=== PATIENT | female | born 1965 | race African-American/Black ===

== ENCOUNTER 2017-09-08 19:54 | Inpatient (IN) | payer OTHER, MEDICAID ==
[~2017-09-08] VITALS: Ht 157.5 cm; Wt 55.3 kg
[2017-09-08 20:16] LABS: BASOPHIL (%) 0.4 % (0-1); EOSINOPHIL (%) 0.4 % (0-5); HEMATOCRIT 40.6 % (36.0-46.0); HEMOGLOBIN 14.9 G/DL (11.9-15.5); IMMATURE GRANULOCYTE (%) 0.6 % (0.0-0.7); LYMPHOCYTE (%) 33.8 % (15-42); LYMPHOCYTE COUNT 2.3 K/uL (1.0-2.8); MCHC 36.7 G/DL (30.0-36.0); MONOCYTE (%) 6.2 % (3-12); MONOCYTE COUNT 0.4 K/uL (0-0.8); NEUTROPHIL (%) 58.6 % (45-76); NEUTROPHIL COUNT 4.1 K/uL (1.8-6.4); PLATELET COUNT 291 K/uL (156-360); RBC DIS.WIDTH-CV 11.6 % (11.8-14.6); RBC DIS.WIDTH-SD 38.1 % (39-53); RED BLOOD COUNT 4.51 M/uL (3.80-5.20); WHITE BLOOD COUNT 6.9 K/uL (4.1-10.2)
[2017-09-08 20:28] LABS: AMYLASE 36 IU/L (1-118); CHLORIDE 93 mEq/L (99-109); POTASSIUM 4.4 mEq/L (3.7-5.4); SODIUM 132 mEq/L (136-147)
[2017-09-08 20:33] LABS: CREATININE 1.1 mg/dL (0.6-1.3); SERUM ETHYL ALCOHOL < 10 mg/dL
[2017-09-08 20:34] LABS: UREA NITROGEN (BUN) 10 mg/dL (9-23)
[2017-09-08 20:36] LABS: LIPASE 9 U/L (1.0-51.0)
[2017-09-08 20:43] LABS: QUANTITATIVE HCG < 4.0 MIU/ML
[2017-09-08 20:44] LABS: GFR ESTIMATE (CALCULATED) 55 mL/min/
[2017-09-08 20:46] LABS: GLUCOSE 711 mg/dL (70-99)
[2017-09-08 20:47] LABS: APPEARANCE SL.HAZY ((CLEAR)); BILIRUBIN NEGATIVE; BLOOD SMALL; COLOR STRAW ((YELLOW)); GLUCOSE (STRIP) >=500; KETONES 5; LEUKOCYTES LARGE; NITRITE NEGATIVE; PROTEIN (STRIP) NEGATIVE; SPECIFIC GRAVITY 1.025 (1.000-1.030); UROBILINOGEN 0.2 MG/DL (0.2-1.0)
[2017-09-08 20:50] LABS: BACTERIA RARE /HPF; EPITHELIAL CELLS RARE /HPF; MUCUS TRACE /LPF; RED BLOOD CELLS 20-30 /HPF (0-5); UCUL ADDED? YES; WHITE BLOOD CELLS TNTC /HPF (0-5)
[2017-09-08 21:02] LABS: AMPHETAMINE NEGATIVE (500 ng/mL); BARBITURATES NEGATIVE (200 ng/mL); BENZODIAZEPINES NEGATIVE (150 ng/mL); BUPRENORPHINE NEGATIVE (10 ng/mL); COCAINE PRESUMPTIVE POSITIVE (150 ng/mL); METHADONE NEGATIVE (200 ng/mL); METHAMPHETAMINE NEGATIVE (500 ng/mL); OPIATES (MORPHINE) NEGATIVE (100 ng/mL); OXYCODONE NEGATIVE (100 ng/mL); PHENCYCLIDINE NEGATIVE (25 ng/mL); PROPOXYPHENE NEGATIVE (300 ng/mL); THC CANNABINOIDS NEGATIVE (50 ng/mL); TRICYCLIC ANTIDEPRESSANTS NEGATIVE (300 ng/mL)
[2017-09-08] MEDS ORDERED: LANTUS 3 M100 UNITS1 SC (22:46)
[2017-09-08] MEDS ORDERED: UNABLE TO OBTAIN (22:49)
[2017-09-09] VITALS (13 sets, daily range): BP systolic 111–179; BP diastolic 58–86
[2017-09-09] MEDS ORDERED: NOVOLOG PE100 UNITS/ SC (09:45)
[2017-09-09] MEDS ORDERED: GABAPENTIN600 MG PO (09:45)
[2017-09-09] MEDS ORDERED: OXYCODONE-APAP1 EACH PO (09:45)
[2017-09-09] MEDS ORDERED: ASPIR 8181 M1 PO (09:46)
[2017-09-09 12:42] LABS: GLUCOSE 374 mg/dL (70-99)
[2017-09-09 12:52] LABS: CHLORIDE 95 MEQ/L (99-109); CREATININE 0.7 MG/DL (0.6-1.3); GFR ESTIMATE (CALCULATED) > 59 mL/min/; POTASSIUM 3.8 MEQ/L (3.7-5.4); SODIUM 133 MEQ/L (136-147); UREA NITROGEN (BUN) 9 mg/dL (9-23)
[2017-09-09 17:49] LABS: GLUCOSE 433 mg/dL (70-99)
[2017-09-10 03:40] VITALS: BP 106/55
[2017-09-10 06:18] LABS: BASOPHIL (%) 0.7 % (0-1); EOSINOPHIL (%) 1.1 % (0-5); EOSINOPHIL COUNT 0.1 K/uL (0-0.3); HEMOGLOBIN 13.3 G/DL (11.9-15.5); IMMATURE GRANULOCYTE (%) 0.2 % (0.0-0.7); LYMPHOCYTE (%) 50.1 % (15-42); LYMPHOCYTE COUNT 2.7 K/uL (1.0-2.8); MCH 31.5 PG (29.0-34.0); MCHC 34.1 G/DL (30.0-36.0); MCV 92.4 FL (83-99); MONOCYTE (%) 7.2 % (3-12); MONOCYTE COUNT 0.4 K/uL (0-0.8); NEUTROPHIL (%) 40.7 % (45-76); NEUTROPHIL COUNT 2.2 K/uL (1.8-6.4); PLATELET COUNT 247 K/uL (156-360); RBC DIS.WIDTH-SD 40.4 % (39-53); RED BLOOD COUNT 4.22 M/uL (3.80-5.20); WHITE BLOOD COUNT 5.5 K/uL (4.1-10.2)
[2017-09-10 06:45] LABS: ALBUMIN 2.8 G/DL (3.2-4.8); ALKALINE PHOSPHATASE 85 IU/L (3-129); ALT (GPT) 12 IU/L (3-49); AST (GOT) 13 IU/L (2-34); CHLORIDE 103 MEQ/L (99-109); CREATININE 0.7 MG/DL (0.6-1.3); GFR ESTIMATE (CALCULATED) > 59 mL/min/; GLUCOSE 61 mg/dL (70-99); POTASSIUM 3.5 MEQ/L (3.7-5.4); SODIUM 137 MEQ/L (136-147); TOTAL BILIRUBIN 0.2 MG/DL (0.0-1.0); TOTAL PROTEIN 5.7 G/DL (6.4-8.3); UREA NITROGEN (BUN) 12 mg/dL (9-23)
[2017-09-10 08:10] VITALS: BP 125/64
[2017-09-10 12:18] LABS: HEMOGLOBIN A1c (GLYCOHEMOGLOB) 13.7 % (Below 5.7)
[2017-09-10 12:24] VITALS: BP 139/73
[2017-09-10 15:50] VITALS: BP 140/68
[2017-09-10 19:14] VITALS: BP 141/70
[2017-09-10 23:15] VITALS: BP 136/64
[2017-09-11 04:40] VITALS: BP 138/70
[2017-09-11 06:15] LABS: BASOPHIL (%) 0.5 % (0-1); EOSINOPHIL (%) 0.9 % (0-5); EOSINOPHIL COUNT 0.1 K/uL (0-0.3); HEMATOCRIT 35.5 % (36.0-46.0); HEMOGLOBIN 11.9 G/DL (11.9-15.5); IMMATURE GRANULOCYTE (%) 0.2 % (0.0-0.7); LYMPHOCYTE (%) 47.8 % (15-42); LYMPHOCYTE COUNT 2.7 K/uL (1.0-2.8); MCH 31.6 PG (29.0-34.0); MCHC 33.5 G/DL (30.0-36.0); MCV 94.4 FL (83-99); MONOCYTE (%) 7.6 % (3-12); MONOCYTE COUNT 0.4 K/uL (0-0.8); NEUTROPHIL COUNT 2.4 K/uL (1.8-6.4); PLATELET COUNT 222 K/uL (156-360); RBC DIS.WIDTH-CV 12.1 % (11.8-14.6); RBC DIS.WIDTH-SD 42.2 % (39-53); RED BLOOD COUNT 3.76 M/uL (3.80-5.20); WHITE BLOOD COUNT 5.5 K/uL (4.1-10.2)
[2017-09-11 06:42] LABS: ALBUMIN 2.5 G/DL (3.2-4.8); ALKALINE PHOSPHATASE 65 IU/L (3-129); ALT (GPT) 12 IU/L (3-49); AST (GOT) 13 IU/L (2-34); CHLORIDE 103 MEQ/L (99-109); CREATININE 0.7 MG/DL (0.6-1.3); GFR ESTIMATE (CALCULATED) > 59 mL/min/; SODIUM 138 MEQ/L (136-147); TOTAL BILIRUBIN 0.2 MG/DL (0.0-1.0); UREA NITROGEN (BUN) 16 mg/dL (9-23)
[2017-09-11 06:44] LABS: GLUCOSE 154 mg/dL (70-99); POTASSIUM 4.3 MEQ/L (3.7-5.4)
[2017-09-11 07:40] VITALS: BP 127/68
[2017-09-11] MEDS ORDERED: HYDROCODON-ACE1 EAC7 PO (10:53)
[2017-09-11] MEDS ORDERED: DOCUSATE SODIU100 MG PO (10:53)
[2017-09-11 11:29] VITALS: BP 155/74
[2017-09-11 11:35] VITALS: BP 122/62
[2017-09-11 16:17] VITALS: BP 129/70
== END 2017-09-11 17:18 | disposition home or self-care (01) | DRG 552 ==
LOC: TRA 19:54 → EDOF 22:27 → 4EAST 22:27 → 3EAST 22:27 → ENRESERV 22:59 → 4EAST 09-09 01:24 → ENRESERV 09-09 18:22 → 3EAST 09-09 21:23
PROVIDERS: Emergency Medicine; Hospitalist; Thoracic Surgery (Cardiothoracic Vascular Surgery)
DX: S12.000A Unspecified displaced fracture of first cervical vertebra, initial encounter for closed fracture (principal); S12.100A Unspecified displaced fracture of second cervical vertebra, initial encounter for closed fracture; S06.0X9A Concussion with loss of consciousness of unspecified duration, initial encounter; V48.5XXA Car driver injured in noncollision transport accident in traffic accident, initial encounter; Y92.410 Unspecified street and highway as the place of occurrence of the external cause; E87.1 Hypo-osmolality and hyponatremia; R63.4 Abnormal weight loss; Z68.1 Body mass index [BMI] 19.9 or less, adult; Z91.14 Patient's other noncompliance with medication regimen; R07.89 Other chest pain; E11.65 Type 2 diabetes mellitus with hyperglycemia; E11.40 Type 2 diabetes mellitus with diabetic neuropathy, unspecified; R78.2 Finding of cocaine in blood; I10 Essential (primary) hypertension; K59.00 Constipation, unspecified; F17.210 Nicotine dependence, cigarettes, uncomplicated; Z79.4 Long term (current) use of insulin
CPT/HCPCS: 70450; 71045; 71260; 72125; 72141; 74177; 80048; 80048 91; 80053; 81003; 82010; 82150; 82803; 82948; 83036; 83605; 83690; 84702; 84999; 85025; 86850; 86900; 86901; 87086; 93005; 99202; 99281; 99285; G0480; J0360; J1650; J1815; J2405; J3010; J3480; J7030